=== PATIENT | female | born 1955 | race Hispanic/Latino ===

== ENCOUNTER → 2017-06-14 | Day surgery (SDC) | payer BC ==
[2017-06-08 10:08] LABS: BASOPHILS # (AUTO) 0.1 (0.0-0.1); BASOPHILS % 0.8 % (0.0-1.0); EOSINOPHILS # (AUTO) 0.2 (0.0-0.4); EOSINOPHILS % 1.3 % (0.0-6.0); HEMATOCRIT 40.4 % (34.2-44.1); HEMOGLOBIN 13.2 g/dL (12.0-16.0); LYMPHOCYTES # (AUTO) 2.7 (1.0-3.2); LYMPHOCYTES % 23.1 % (18.0-39.1); MEAN CORPUSCULAR HGB CONC 32.7 g/dL (31-35); MEAN CORPUSCULAR VOLUME 88.8 fL (81-99); MONOCYTES # (AUTO) 0.6 (0.2-0.8); MONOCYTES % 5.5 % (4.4-11.3); NEUTROPHILS # (AUTO) 8.1 (2.1-6.9); PLATELET COUNT 222 x10e3/uL (140-360); RED BLOOD COUNT 4.55 x10e6/uL (3.6-5.1); RED CELL DISTRIBUTION WIDTH 14.3 % (11.7-14.4)
[2017-06-08 10:27] LABS: ANION GAP 15.2 mmol/L (8-16); BLOOD UREA NITROGEN 23 mg/dL (7-26); BUN/CREATININE RATIO 29 (6-25); CALCIUM 9.7 mg/dL (8.4-10.2); CARBON DIOXIDE 30 mmol/L (22-29); CHLORIDE 103 mmol/L (98-107); EST GLOMERULAR FILTRATION RATE > 60 ML/MIN (60-); GLUCOSE 148 mg/dL (74-118); POTASSIUM 5.2 mmol/L (3.5-5.1); SODIUM 143 mmol/L (136-145)
[~2017-06-14] MED LIST: ASPIRIN81 MG PO; ATENOLOL-CHLOR1 EACH PO; BUPIVACAINE 0.25% 30ML SDV INJ ONE; CEFAZOLIN SOD 2 GM/D5W 50ML 50 ML IV ONE; COQ-10100 MG PO; DEXAMETHASONE SOD PHOS INJ 4 MG/ML VIAL ONE; DICLOFENAC PO; FENTANYL CITRATE/PF 100MCG/2 ML INJ ONE; GLYCOPYRROLATE INJ 1MG/ 5 ML SYR ONE; LIDOCAINE 2%/ EPINEPHRINE 20ML MDV ONE; LIDOCAINE HCL 2% LOCAL INJ 5 ML SDV VIAL INJ ONE; LOSARTAN POTASS25 MG PO; METFORMIN HCL500 M2 PO; MIDAZOLAM HCL 2 MG/2 ML VIAL ONE; NEOSTIGMINE 5 MG/5ML SYR ONE; ONDANSETRON HCL INJ 2 MG/ML VIAL ONE; PROPOFOL IV EMULSION 10 MG/ML 20 ML VIAL ONE; RED YEAST RICE600 M1 PO; ROCURONIUM BROMIDE 10 MG/ML 5ML VIAL ONE; SEVOFLURANE INHAL SOLN 250 ML PEN BTL ONE
--- NOTE | 2017-06-16 00:16 | Operative Report ---
DATE OF PROCEDURE: June 14, 2017 PREOPERATIVE DIAGNOSES 1. Right shoulder rotator cuff tear. 2. Right shoulder acromioclavicular joint arthrosis. 3. Right shoulder carpal tunnel syndrome. POSTOPERATIVE DIAGNOSES 1. Right shoulder rotator cuff tear. 2. Right shoulder acromioclavicular joint arthritis. 3. Right shoulder synovitis. 4. Right carpal tunnel syndrome. OPERATION/PROCEDURE PERFORMED: Patient underwent 1. Right shoulder exam under anesthesia. 2. Right shoulder arthroscopy. 3. Right shoulder arthroscopic debridement of synovitis. 4. Right shoulder arthroscopic rotator cuff reconstruction. 5. Right shoulder arthroscopic subacromial decompression and acromioplasty. 6. Right shoulder arthroscopic distal clavicle resection. 7. Open right carpal tunnel release. ARCHITECTURAL EXAMINER: Sherly Powell. ANESTHESIA: General endotracheal intubation anesthesia. IV FLUIDS: Per the anesthesia record. BRIEF DESCRIPTION OF THE PATIENT'S OPERATIVE PROCEDURE: Ms. Palomino was taken to the operating room and placed in the supine position on the operating table. Following induction of general anesthesia as well as intubation, the patient's right upper extremity was examined under anesthesia. She was found to have full passive range of motion of the shoulder joint. She had normal-appearing hand. The patient's upper extremity was prepped and draped in the standard surgical fashion. The case was begun by performing the right carpal tunnel release. The patient's palm was evaluated and found to be normal in its appearance. An incision was created along the thenar palmar crease. This incision was carried through skin only. Blunt dissection was used to deepen the incision to the level of the transverse carpal ligament. A hemostat was placed beneath the transverse carpal ligament. The transverse carpal ligament was then divided in line with skin incision. The floor of the carpal canal was evaluated and found to have no abnormalities. The tourniquet was deflated, hemostasis was obtained. The surgical incision was then closed in a single-layer fashion. Sterile dressings were applied. Attention was then turned to the patient's shoulder. Standard posterolateral and anterior portals were created without difficulty. The scope was placed within the shoulder joint atraumatically. Examination of the glenohumeral articulation demonstrated no significant evidence of chondromalacia. There was however diffuse synovitis throughout the shoulder joint. There was a near full-thickness rotator cuff tear. Shaver was placed in the shoulder joint and the patient's synovitis was debrided. The rotator cuff tear was debrided. The insertion site for the rotator cuff was debrided to a bleeding bony bed. The shoulder was then deflated of its sterile saline. The scope was placed in subacromial space and a lateral portal was created through an outside-in technique. Examination of subacromial space demonstrated significant bursal inflammation. The bursa was resected. An accessory anterolateral portal was created without difficulty. The near complete tear of the rotator cuff was elevated from the tuberosity of the humerus. A shaver was then used to further debride the insertion site. There was significant wear to the rotator cuff tissue along its bursal surface. A single suture anchor was inserted and the suture arms from those anchors were woven through the rotator cuff tissue. The rotator cuff tissue was advanced into its insertion site and tied firmly. The coracoacromial ligament was then resected. An aggressive acromioplasty was then performed. The anterior portal was then placed in the subacromial space. The acromioclavicular joint was isolated. A 1-cm section of the distal clavicle was then resected using a shaver. The shoulder was then deflated of its normal saline. The portal sites were dressed sterilely and a new dressing was also placed on the carpal tunnel incision site. The patient was provided a shoulder immobilizer, awakened, and taken to the post-anesthesia care unit in stable condition. Sherly Powell acted as credentialing assistant for this case. It was necessary for both prepping and draping the patient as well as retraction of soft tissues during the carpal tunnel release and the positioning of the arm and passage of suture that allowed this case to be successful. Job#: [id number]
== END | disposition home or self-care (01) ==
LOC: OR 05:52
PROVIDERS: ATTEND Specialist
DX: G56.01 Carpal tunnel syndrome, right upper limb (principal); M75.111 Incomplete rotator cuff tear or rupture of right shoulder, not specified as traumatic; M65.811 Other synovitis and tenosynovitis, right shoulder; M19.011 Primary osteoarthritis, right shoulder; E11.9 Type 2 diabetes mellitus without complications; I10 Essential (primary) hypertension; Z01.810 Encounter for preprocedural cardiovascular examination; Z01.812 Encounter for preprocedural laboratory examination
CPT/HCPCS: 29824; 29826; 29827; 36415 ×2; 64721; 80048; 82948; 85025; 93005; J1100; J2001 ×2; J2250; J2405